=== PATIENT | male | born 2000 | race Two or more races ===

== ENCOUNTER 2020-04-14 09:10 | Emergency (ER) | payer OTHER ==
[~2020-04-14] VITALS: Ht 165.1 cm; Wt 54.0 kg
[2020-04-14 09:19] VITALS: BP 113/68
--- NOTE | 2020-04-14 11:00 | NUR ---
SPLINT APPLIED WALKING STABLE ON CRUTCHES
== END 2020-04-14 11:02 | disposition home or self-care (01) ==
LOC: ED 10:01
DX: S93.491A Sprain of other ligament of right ankle, initial encounter (principal); X50.1XXA Overexertion from prolonged static or awkward postures, initial encounter; Y93.89 Activity, other specified; Y92.488 Other paved roadways as the place of occurrence of the external cause; Y99.8 Other external cause status
CPT/HCPCS: 99284